=== PATIENT | female | born 1990 | race Hispanic/Latino ===

== ENCOUNTER → 2024-12-05 | Outpatient (CLI) | payer OTHER ==
--- NOTE | 2024-12-05 18:45 | HMCIMG ---
CLINICAL INFORMATION Knee contusion COMPARISON None. TECHNIQUE Multiplanar multisequence MR imaging of the left knee without contrast FINDINGS LIGAMENTS Anterior cruciate ligament: Intact. Posterior cruciate ligament: Intact. Medial collateral ligament: Thickening with a ligamentous edema. Interval fibers. Lateral collateral ligament: Intact. Posterolateral corner structures: Intact. MENISCI Medial meniscus: Intact. Lateral meniscus: Intact. EXTENSOR MECHANISM The distal quadriceps and patellar tendons are intact. The patella is normally positioned within the femoral groove. There is no medial patellofemoral ligament or retinacular disruption. OSSEOUS AND ARTICULAR STRUCTURES Bones: No fracture, stress reaction, or osseous lesion is seen. Patellofemoral compartment: No hyaline cartilage disease. Medial compartment: No hyaline cartilage disease. Lateral compartment: No hyaline cartilage disease. OTHER Fluid: No joint effusion. No Wheeler's cyst. Soft Tissues: Normal. IMPRESSION Grade 2 MCL sprain. No meniscal tear. /[place]
== END | disposition home or self-care (01) ==
LOC: RAH 09:03
PROVIDERS: ATTEND Nurse Practitioner Family
DX: S83.412A Sprain of medial collateral ligament of left knee, initial encounter (principal); S80.02XA Contusion of left knee, initial encounter; X58.XXXA Exposure to other specified factors, initial encounter; Y93.89 Activity, other specified; Y92.89 Other specified places as the place of occurrence of the external cause; Y99.8 Other external cause status
CPT/HCPCS: 73721